=== PATIENT | male | born 1975 | race Caucasian/White ===

== ENCOUNTER 2018-08-24 10:58 | Outpatient (CLI) | payer BC, SELFPAY ==
--- NOTE | 2018-08-24 10:54 | DI.RAD_ITS ---
SYMPTOM/DIAGNOSIS: RT SHOULDER PAIN RIGHT SHOULDER: No priors. No acute fracture or dislocation is seen. The glenohumeral joint and acromioclavicular joints appear well maintained. There is a well corticated lucent lesion peripherally in the proximal metaphysis of the right humerus. No periosteal reaction or cortical disruption is noted. The soft tissues are unremarkable. IMPRESSION: 1. No acute abnormality 2. Lytic lesion in the proximal metaphysis of the right humerus. Radiographically the finding suggests a benign lesion such as a fibrous cortical defect/nonossifying fibroma. No destructive lesions or associated soft tissue calcifications are seen.
== END 2018-08-24 11:18 ==
PROVIDERS: PCP Family Medicine; Visit Provider Physician Assistant
DX: M25.511 Pain in right shoulder (principal); M84.821 Other disorders of continuity of bone, right humerus
CPT/HCPCS: 73030

== ENCOUNTER 2019-04-02 08:19 | Day surgery (SDC) | payer BC, SELFPAY ==
[2019-04-02] VITALS (7 sets, daily range): BP systolic 100–131; BP diastolic 44–61; PULSE 55–82; RESP 10–16; TEMP 35.8–36.7; O2SAT 94–99
[2019-04-02] MEDS: Lactated Ringers 1,000 ML 80 ML IV (09:10)
[2019-04-02] MEDS: Bupivacaine LIPOSOME/PF 133 MG/10 ML VIAL IJ (10:38)
[2019-04-02] MEDS: Bupivacaine 0.25% Pres-Free 10 ML VIAL IJ (10:38)
[2019-04-02] MEDS: ceFAZolin 2 GM/50 ML BAG IVPB (11:17)
--- NOTE | 2019-04-02 13:06 | W.PM.DSUDISC ---
Discharge Plan Disposition Patient Disposition: HOME Condition: Good Discharge Details Reason For Visit: RUTURE (L) PATELLAR TENDON Attending Provider: Kirk Romano Primary Care Provider: Ronald Jackson [place] Meds and New Rx's Prescriptions: New ibuprofen 800 mg tablet 800 mg PO TID Qty: 30 RF: 0 oxycodone-acetaminophen 5-325 mg tablet 1 tab PO Q4H PRN (Reason: pain) Qty: 20 RF: 0 Continued ibuprofen 600 mg Tablet 600 mg PO QID PRNRF: 0 lysine 1,000 mg Tablet 1,000 mg PO DAILY RF: 0 magnesium 250 mg Tablet 1,000 mg RF: 0 Discharge Instructions Additional Instructions: Elevate L leg on 1-2 pillows when sitting. With crutches and knee immobilizer splint, you may put some weight on L leg. Only put as much weight as your pain allows. Keep dressings dry and intact until return in one week. Return to 's office in one week. Apply cryocuff to L knee 4 times/day for 1 hour each time. May use more if desired. Take ibuprofen 3 times/day for 10 days to decrease swelling and inflammation. Take oxycodone for breakthru pain, if needed. Referrals: Kirk Romano MD [ [facility] STAFF PHYSICIAN] - (f/u in one week) Equipment/Supplies: Partial Weight Bearing Crutches Activity:: Activity as Tolerated Remove Dressings/Wound Care:: Do Not Remove Shower/Bathe:: Cover Diet:: As Tolerated Discharge Orders Discharge Orders: Discharge Order (Routine); Ordered 04/02/19 Ordered By: Kirk Romano DS: Diagnosis Discharge Diagnosis (1) Traumatic patellar rupture: Status: Acute
[2019-04-02] MEDS: Acetaminophen 325 MG TAB 650 MG PO (15:13)
[2019-04-02] MEDS: oxyCODONE-CR 10 MG TABCR (15:13)
--- NOTE | 2019-04-03 09:37 | ROE_ITS ---
DATE OF PROCEDURE: April 02, 2019 PREOPERATIVE DIAGNOSIS: Ruptured patellar tendon, left. POSTOPERATIVE DIAGNOSIS: Same. PROCEDURE: Repair of ruptured left patellar tendon. ANESTHESIA: General. SURGEON: Kirk Romano M.D. 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 He was unable to bear weight on the left knee after the injury. He was seen at an Urgent Care Clinic where he was placed in an immobilizer sp lint and put on crutches. He saw me on 03/28/19 in the office. I made the diagnosis of patellar ten don rupture based on clinical exam and obvious Patella Merna. Repair of the rupture was recommended as optimum treatment to restore good function to the left leg. The patient was advised of the long recovery of 6 to 12 months following the repair. He wished to have me proceed as soon as possible. PROCEDURE: The patient was taken to the Operating Room on 04/02/19. A femoral nerve block was admin istered and then a general anesthetic was administered. A proximal tourniquet was applied to the lef t thigh and the left lower extremity was prepped from toes to tourniquet and draped free in the usual sterile fashion. Under proximal tourniquet control, an incision was made beginning at the tibial tubercle distally and extending just past the superior pole of the patella. The incision was carried down to the fascia a nd the tear was easily encountered. The patellar tendon sheath was incised. Using sharp dissection, a rongeur and a willie, the distal pole of the patella was decorticated and cleaned down to bleeding b one. Using a 2.5 drill, I pre-drilled holes for suture anchors. Three 5 mm suture anchors were then placed, one medial, one directly at the tip of the patella and one lateral. These anchors were prel oaded with two #2 FiberWire sutures. From each of the anchors, one of the #2 FiberWires were passed through patellar tendon, one medial, one central and one lateral in the tendon, in a [place] locking s uture. The knee, which had been flexed over a triangle, was then extended and the three sutures were tied tightly, bringing the patellar tendon to the inferior pole of the patella. I checked the repai r at this point and was able to flex his knee to 90 degrees without disrupting the repair. Each of t he anchors had another loaded suture and I used that to pass through the suture and through the tendo n distal to the [place] sutures so that the tendon could be simply tied and a second layer of repair w as accomplished. I then flexed the knees about 30 degrees and repaired the retinaculum with interrup primitivo [id number] sutures of #1 Vicryl suture material. Finally, I protected the repair with an in ternal split using 5 mm FiberWire tape. A transverse drill hole was placed at the level of the tibia l tubercle through the tibia. The 5 mm FiberWire was then passed through the drill hole. I then pas sed a second FiberWire, weaving it through the quadriceps tendon proximal to its insertion on the pat song. I cut the needles off these double-stranded FiberWires and then I tied each one individually s o that they formed a [id number] over the patellar tendon. When I checked the repair, I brought the knee to 90 degrees and there was absolutely no tightness, in fact a little slack in the patellar tendon was noted, which is what was the desired tension. The knee was then flexed to 30 degrees and closure was continued. The wound margins were infiltrated with 0.5% Marcaine with an epinephrine pina ution for postoperative analgesia. The subcu was approximated with interrupted #2-0 Vicryl sutures a nd the skin edges were approximated with skin lexy. Sterile dressings were applied of Xeroform ga uze, sterile gauze 4x4's, ABD pad, wrapped with a 4-inch Kerlix bandage and then wrapped with 6-inch LUDWIN bandages for a light pressure dressing. The left leg was placed in a knee immobilizer splint to maintain the knee in extension and protect the patellar tendon repair. The tourniquet was released a t this point; there was no breakthrough bleeding to the dressings. Exam of the patient's knee under anesthesia was performed prior to beginning the procedure. The christian ent had stable cruciate ligaments with negative Souleymane's and reverse-Souleymane's test. He had stable collateral ligaments with no laxity when stressing the medial and lateral collateral ligaments in 30 degrees of flexion. The posterior cruciate ligament was also intact. The patient's anesthesia was reversed without complication. Blood loss was minimal due to tournique t use. He was discharged to the recovery room in good condition. The patient was discharged home from the Day Surgery Unit when fully recovered from his general anest hesia. He was given instructions to elevate his left leg on 1 to 2 pillows as much as possible for t he next 48 to 72 hours. He should elevate his left leg whenever he is sitting. He is to keep his dr essings and splint intact and dry for a week. He will follow-up in my office in 1 week for a wound c heck and dressing change. He was given a prescription of ibuprofen 800 mg p.o. t.i.d. for ten days t o help with pain and swelling. He was given a prescription for breakthrough pain of Oxycodone 5/325 mg one p.o. q4h p.r.n.
== END 2019-04-02 16:35 | disposition home or self-care (01) ==
PROVIDERS: PCP Family Medicine; Visit Provider Orthopaedic Surgery
PROC: (CPT 27380; principal; 2019-04-02 10:30)
DX: S76.112A Strain of left quadriceps muscle, fascia and tendon, initial encounter (principal); G89.18 Other acute postprocedural pain; W01.0XXA Fall on same level from slipping, tripping and stumbling without subsequent striking against object, initial encounter; Y93.01 Activity, walking, marching and hiking; Y99.8 Other external cause status
CPT/HCPCS: 27380; C1713; J0690; J1100; J1885; J2405; J3010

== ENCOUNTER 2019-04-11 10:11 | Outpatient (CLI) | payer BC, SELFPAY ==
--- NOTE | 2019-04-11 09:29 | DI.RAD_ITS ---
SYMPTOMS/DIAGNOSIS: F/U PATELLA TENDON REPAIR LEFT KNEE: Postoperative AP and lateral images reveal metallic anchors affixed to the lower pole of the patella in connection with a patellar tendon repair.
== END 2019-04-11 10:31 ==
PROVIDERS: PCP Family Medicine; Visit Provider Orthopaedic Surgery
DX: S86.812D Strain of other muscle(s) and tendon(s) at lower leg level, left leg, subsequent encounter (principal); Z98.890 Other specified postprocedural states
CPT/HCPCS: 73560

== ENCOUNTER 2020-01-23 16:24 | Outpatient (REF) | payer BC, SELFPAY ==
[2020-01-24 14:49] LABS: COVID-19 RT-PCR Result NEGATIVE (Negative)
== END 2020-01-23 16:44 ==
LOC: NCHCN 16:24
PROVIDERS: PCP Family Medicine; Visit Provider Physician Assistant
DX: Z20.828 Contact with and (suspected) exposure to other viral communicable diseases (principal)
CPT/HCPCS: U0003

== ENCOUNTER 2020-02-07 07:16 | Outpatient (CLI) | payer BC, SELFPAY ==
[2020-02-08 15:55] LABS: COVID-19 RT-PCR UVMMC Result Negative (Negative)
== END 2020-02-07 07:36 ==
PROVIDERS: PCP Family Medicine; Visit Provider Orthopaedic Surgery
DX: Z11.59 Encounter for screening for other viral diseases (principal)
CPT/HCPCS: U0003

== ENCOUNTER 2020-02-11 10:59 | Day surgery (SDC) | payer BC, SELFPAY ==
--- NOTE | 2020-02-10 22:03 | HPE_ITS ---
Assessment and Plan Assessment and plan (1) Traumatic patellar rupture: Status: Deleted (2) Ruptured patellar tendon: Status: Acute (3) Painful orthopaedic hardware: Status: Acute Assessment and plan: Plan: Patient tested negative for Covid-19 on 02/07/20 - reports has remained in quarantine since testing and has not had any contact with COVID 19+ persons. Educated patient on surgery covering surgical technique, recovery process, benefits and risks including but not limited to risk of infection, blood clot, damage to soft tissue/blood vessels/nerves in detail. After discussion patient gives verbal understanding of risks and elects to proceed with surgery. Patient had opportunity to have questions answered to their satisfaction. Patient will continue to be scheduled for removal of fiberwire tape from status post repair of left patellar tendon rupture with Dr. Romano. History of Present Illness Narrative: Mr. Hall is a 44-year-old male who presents to hospital for scheduled excision of FiberWire tape from repair of left ruptured patellar tendon. He has been seen in orthopedic clinic for follow-up and started to have discomfort over area identified as scar tissue around the FiberWire. Due to his discomfort Dr. Romano offered surgical excision and patient was eager to proceed. Pertinent Surgical Information Denies past medical history of: Hypertension, stroke, cardiac issues, angina, asthma, COPD, sleep apnea, renal issues, liver issues, hepatitis, gastrointestinal issues, ulcers, hyperlipidemia, bleeding disorders, seizures, migraines, anxiety, depression, diabetes, autoimmune disorders, thyroid issues Denies prior complications from surgery or anesthesia. Review of Systems Constitutional Constitutional: Denies fever(s) Cardiovascular Cardiovascular: Denies chest pain, Denies dyspnea and Denies dyspnea on exertion Respiratory Respiratory: Denies cough, Denies dyspnea, Denies dyspnea on exertion and Denies wheezing Musculoskeletal Musculoskeletal: Reports as per HPI Allergic/Immunologic Allergic/Immunologic: Denies wheezing [facility] Medical History (Updated 02/11/20 @ 10:41 by Saba Díaz) Painful orthopaedic hardware (Acute) Tricuspid murmur (Chronic) pt. states he has had it since , but has never had any issues with it Surgical History H/O vasectomy (Acute) History of tonsillectomy (Chronic) [place] teeth extracted (Acute) Social History Smoking/Tobacco Use Status: Never Alcohol Intake: never Drug use: Never Substance use type: does not use Current gender identity: male Do you feel safe at home: Yes Do you feel safe in your relationship?: Yes Meds Home Medications and Allergies Home Medications Medication Instructions Recorded Confirmed Type lysine 1,000 mg PO DAILY 04/02/19 02/07/20 History magnesium 1,000 mg DAILY 04/02/19 02/07/20 History ibuprofen 600 mg PO PRN PRN 02/11/20 02/11/20 History Allergies Allergy/AdvReac Type Severity Reaction Status Date / Time No Known Allergies Allergy Verified 02/11/20 11:12 Exam Const General: cooperative and no acute distress HENMT Head: normal to inspection, normocephalic and atraumatic Resp Effort & Inspection: normal respiratory effort and able to speak in complete sentences Auscultation: clear to auscultation bilaterally, no rales, no rhonchi and no wheezes Cardio Heart Sounds: S1 normal, S2 normal, no murmurs (no murmur was appreciated by provider today), no rubs and no other Pulses: radial pulses present bilaterally Skin General skin exam: no rashes or lesions noted
[2020-02-11] VITALS (9 sets, daily range): BP systolic 80–119; BP diastolic 21–59; PULSE 52–69; RESP 12–17; TEMP 36.1–36.6; O2SAT 98–100
[2020-02-11] MEDS: Lactated Ringers 1,000 ML 80 ML IV ×2 (11:45→13:26)
--- NOTE | 2020-02-11 13:33 | W.PM.DSUDISC ---
Discharge Plan Disposition Patient Disposition: HOME Condition: Good Discharge Details Reason For Visit: remove painful suture L quadriceps tendon Attending Provider: Kirk Romano Primary Care Provider: Ronald Jackson [place] Meds and New Rx's Prescriptions: New oxycodone-acetaminophen 5-325 mg tablet 1 tab PO Q6H PRN (Reason: pain) Qty: 10 RF: 0 Continued lysine 1,000 mg Tablet 1,000 mg PO DAILY RF: 0 magnesium 250 mg Tablet 1,000 mg DAILY RF: 0 ibuprofen 200 mg Tablet 600 mg PO PRN PRNRF: 0 Discharge Instructions Additional Instructions: Apply ice to surgical site 4 times/day for 1 hour each time over next 48 hours. Activities as tolerated. Take ibuprofen 600-800 mg every 6 hours for mild pain. Take oxycodone for breakthru pain, if needed. After 48 hours, may shower and get dressing wet. Let dressing fall off by itself over time. Follow up with in 2 weeks. Referrals: Kirk Romano MD [ [facility] STAFF PHYSICIAN] - (f/u in 2 weeks.) Activity:: Activity as Tolerated Remove Dressings/Wound Care:: Do Not Remove Shower/Bathe:: 48 hours Diet:: As Tolerated Discharge Orders Discharge Orders: Discharge Order (Routine); Ordered 02/11/20 Ordered By: Kirk Romano DS: Diagnosis Discharge Diagnosis (1) Traumatic patellar rupture: Status: Deleted (2) Ruptured patellar tendon: Status: Acute (3) Painful orthopaedic hardware: Status: Acute
[2020-02-11] MEDS: ePHEDrine 50 MG/ML VIAL (14:00)
--- NOTE | 2020-02-11 15:38 | W.PM.OP ---
Date of service: 02/11/20 Time of Service: 15:39 Operative Note Operative Note DATE OF PROCEDURE: 02/11/20 PRE-OP DIAGNOSIS: Painful suture left quadriceps tendon POST-OP DIAGNOSIS: same PROCEDURE: Removal of painful suture from left quadriceps tendon. SURGEON: Kirk Romano ANESTHESIA: GETA PATHOLOGY: none sent TOURNIQUET TIME: 15 COMPLICATIONS: None Patient was transported to: PACU Patient's condition: stable Indications: This patient had a repair of a ruptured patella tendon last spring. The repair included use of a #5 [place] suture as a check rein to protect the patella tendon repair. Patient has had a wonderful recovery. He is bothered by the #5 [place] suture just above proximal to his patella. He feels it when he attempts to flex his knee to end range. He is interested in removing this suture to alleviate his pain since it has done his job and is no longer necessary. Risk complications procedure explained to patient detail preop. Procedure Description: Patient taken the operating room on 02/10/2023 supine operating table and general anesthetic administered. Proximal tourniquet was applied to the left thigh. The left knee was then prepped and block draped. The palpable knot which was I think not of the [place] suture is just proximal to the patella. Incision was made in the old scar a distance of about 3 inches. Incision was carried down to the fascia and then right down to the knot of the [place] tape. This tape would become calcified. I removed it with a rongeur and a knife and scalpel. Palpation shows no other evidence of any suture palpable. The minor incision in the prepatellar fascia was approximated with a running interlocked 0 Vicryl suture. Wound margins were indicated 0.5% Marcaine solution. Subcuticular closure with 4-0 Monocryl was performed supplemented by tissue glue and Steri-Strips. Mepilex dressing was applied. Patient's anesthesia reversed complications he was discharged to recovery in good condition. Patient was discharged home from day surgery unit when fully recovered from his general anesthesia. He was given instructions try elevate his leg and limit his activities for the next 48 hours. He is apply ice to the surgical site 4 times a day for an hour each time. He may shower and get his dressing wet in 48 hours. He should not attempt to remove the dressing but instead just let it fall off over time. He may gradually resume activities as tolerated. Take ibuprofen 600 to 8 mg every 6 hours as needed for mild pain. He is given a prescription of oxycodone with APAP 01/12/2025 1 tablet every 6 hours if needed for breakthrough pain. Should follow-up in my office in 2 weeks.
== END 2020-02-11 15:47 | disposition home or self-care (01) ==
PROVIDERS: PCP Family Medicine; Visit Provider Orthopaedic Surgery
PROC: (CPT 20680; principal; 2020-02-11 13:15)
DX: T84.84XA Pain due to internal orthopedic prosthetic devices, implants and grafts, initial encounter (principal); S86.819D Strain of other muscle(s) and tendon(s) at lower leg level, unspecified leg, subsequent encounter; M25.562 Pain in left knee; X58.XXXD Exposure to other specified factors, subsequent encounter
CPT/HCPCS: 20680; NC; J1100; J1885; J2001; J2405; J2704; J3010

== ENCOUNTER 2022-09-17 15:22 | Outpatient (REF) | payer BC, SELFPAY ==
[2022-09-17 16:45] LABS: ALT 40 U/L (16-63); AST 29 U/L (15-37); Albumin 4.5 g/dL (3.4-5.0); Alkaline Phosphatase 75 U/L (46-116); Bilirubin, Total 0.5 mg/dL (0.2-1.0); Ferritin 148 ng/mL (26-388); Total Protein 7.4 g/dL (6.4-8.2)
[2022-09-17 16:54] LABS: Bilirubin, Direct 0.2 mg/dL (0.0-0.2)
[2022-09-20 08:51] LABS: Hepatitis C Ab w Rflx HCV PCR Negative (Negative)
[2022-09-20 08:58] LABS: Hepatitis B Surface Ag Negative (Negative)
== END 2022-09-17 15:23 | disposition home or self-care (01) ==
LOC: NCHCN 15:22
PROVIDERS: PCP Family Medicine; Visit Provider Family Medicine
DX: R74.8 Abnormal levels of other serum enzymes (principal); Z11.59 Encounter for screening for other viral diseases
CPT/HCPCS: 80076; 86803; 87340; 82728

== ENCOUNTER 2023-07-22 16:48 | Outpatient (REF) | payer BC, SELFPAY ==
[2023-07-22 14:35] LABS: HGB 14.4 g/dL (13.5-17.5); MCH 29.1 pg (27.0-33.0); MCHC 33.5 % (32.0-36.0); MCV 87 fL (80-95); MPV 10.5 fL (8.0-11.0); Platelet Count 189 10^3/uL (130-400); RBC 4.95 10^6/uL (4.36-5.78); RDW 12.4 % (11.8-14.1); RDW-SD 39.4 fL
[2023-07-22 15:01] LABS: ALT 35 U/L (16-63); AST 23 U/L (15-37); Albumin 4.5 g/dL (3.4-5.0); Alkaline Phosphatase 64 U/L (46-116); Anion Gap 8.8 mmol/L (3-11); BUN 28 mg/dL (7-18); Bilirubin, Total 0.6 mg/dL (0.2-1.0); CO2 28.2 mmol/L (21.0-32.0); Calcium 9.2 mg/dL (8.5-10.1); Calculated LDL 86 mg/dL (<100); Chloride 103 mmol/L (98-107); Cholesterol 170 mg/dL (<200); Estimated GFR 92.84 (mL/min/1.73m2); Glucose 111 mg/dL (74-106); HDL Cholesterol 77 mg/dL (40-60); Sodium 140 mmol/L (136-145); TSH (W/Ref FT4) 0.84 uIU/mL (0.36-3.74); Total Protein 7.2 g/dL (6.4-8.2); Triglyceride 37 mg/dL (<150)
== END 2023-07-22 16:49 | disposition home or self-care (01) ==
LOC: NCHCN 16:48
PROVIDERS: PCP Family Medicine; Visit Provider Nurse Practitioner Family
DX: I07.8 Other rheumatic tricuspid valve diseases (principal); M54.59 Other low back pain; R79.89 Other specified abnormal findings of blood chemistry; R73.09 Other abnormal glucose; Z13.29 Encounter for screening for other suspected endocrine disorder
CPT/HCPCS: 80053; 80061; 85027; 84443